=== PATIENT | female | born 1940 | race Hispanic/Latino ===

== ENCOUNTER 2018-07-18 01:00 | Inpatient (IN) | payer MEDICARE ==
--- NOTE | 2018-07-18 01:40 | ED PDOC ---
Arrival/HPI - General Chief Complaint: Altered Mental Status Time Seen by Provider: 07/18/18 01:07 Historian: Patient - History of Present Illness Narrative History of Present Illness (Text): 07/18/18 01:25 78 year old female, whose past medical history includes hypertension, hyperlipidemia, presents to the emergency department by EMS by son concerned for AMS. Patient was noted to answer questions inappropriately since earlier this afternoon. Her son rushed from out of state to see his mother where he called EMS. Patient was not given any medication prior to her arrival in the ED. Patient denies any fever, chills, chest pain, shortness of breath, nausea, vomiting, diarrhea, urinary symptoms, back pain, neck pain, headache, dizziness, or any other complaints. PMD: Dr. Gonzales Time/Duration: Prior to Arrival Symptom Onset: Gradual Symptom Course: Unchanged Activities at Onset: Rest Context: Home Past Medical History - Provider Review Nursing Documentation Reviewed: Yes - Travel History Have you recently traveled outside US w/in the past 3 mons?: No - Infectious Disease Hx of Infectious Diseases: None - Reproductive Menopause: No Family/Social History - Physician Review Nursing Documentation Reviewed: Yes Family/Social History: No Known Family HX Allergies/Home Meds Allergies/Adverse Reactions: Allergies No Known Allergies Allergy (Verified 07/18/18 01:05) Home Medications: Home Meds Medication Instructions Recorded Confirmed Aspirin [Aspirin EC] 325 mg PO DAILY 07/18/18 07/18/18 Ciclopirox/Ure/Camph/Menth/Euc 1 allan DAILY 07/18/18 07/18/18 [Ciclopirox 8% Treatment Kit] Famotidine [Pepcid] 20 mg PO BID 07/18/18 07/18/18 Simvastatin [Zocor] 40 mg PO DAILY 07/18/18 07/18/18 Review of Systems - Physician Review All systems were reviewed & negative as marked: Yes - Review of Systems Constitutional: absent: Fevers, Other (Chills) Respiratory: absent: SOB Cardiovascular: absent: Chest Pain Gastrointestinal: absent: Diarrhea, Nausea, Vomiting Genitourinary Female: absent: Dysuria, Frequency, Hematuria Musculoskeletal: absent: Back Pain, Neck Pain Neurological: absent: Headache, Dizziness Physical Exam Vital Signs Reviewed: Yes Vital Signs Temp Pulse Resp BP Pulse Ox 07/18/18 01:02 97.9 F 86 18 162/72 H 97 Temperature: Afebrile Blood Pressure: Hypertensive Pulse: Regular Respiratory Rate: Normal Appearance: Positive for: Well-Appearing, Non-Toxic, Comfortable, Cachectic Pain Distress: None Mental Status: Positive for: Alert and Oriented X 3 - Systems Exam Head: Present: Atraumatic, Normocephalic, Other (Strabismus left eye) Pupils: Present: PERRL Extroacular Muscles: Present: EOMI Conjunctiva: Present: Normal Mouth: Present: Dry, Other (Poor dention) Neck: Present: Normal Range of Motion Respiratory/Chest: Present: Clear to Auscultation, Good Air Exchange. No: Respiratory Distress, Accessory Muscle Use Cardiovascular: Present: Murmurs (systolic ejection murmur) Abdomen: No: Tenderness, Distention, Peritoneal Signs Back: Present: Normal Inspection Upper Extremity: Present: Normal Inspection. No: Cyanosis, Edema Lower Extremity: Present: Normal Inspection. No: Edema Neurological: Present: GCS=15, CN II-XII Intact, Speech Normal Skin: Present: Warm, Dry, Normal Color. No: Rashes Psychiatric: Present: Alert, Oriented x 3, Normal Insight, Normal Concentration Medical Decision Making ED Course and Treatment: 07/18/18 01:25 Impression: 78 year old female presents by son for evaluation of AMS Differential Diagnosis included but are not limited to: -- Sepsis -- Pneumonia -- UTI Plan: -- Head CT w/ contrast -- Labs -- EKG -- Chest X-ray -- Blood Culture --Urine Culture -- Urinalysis -- Reassess and disposition Progress Notes: 07/18/18 04:03 Labs reviewed with patient noted to be hypokalemic with leukocytosis of 15 noted. CTH negative for intracranial bleeding or skull fracture. Case discussed with Dr. Carmelo Gonzales(PCP)who is aware and agrees with the plan. - Lab Interpretations Lab Results: 07/18/18 01:35 07/18/18 01:35 Lab Results 07/18/18 01:35: Sodium 135, Potassium 3.4 L, Chloride 94 L, Carbon Dioxide 28, Anion Gap 17, BUN 57 H, Creatinine 1.4 H, Est GFR ( Amer) 44, Est GFR (Non-Af Amer) 36, Random Glucose 94, Calcium 9.4, Phosphorus 4.1, Magnesium 1.4 L, Total Bilirubin 0.9, AST 55 H, ALT 17, Alkaline Phosphatase 80, Total Creatine Kinase 283 H, CK-MB (CK-2) 9.4 H, CK-MB (CK-2) % 3.3 H, Troponin I 0.02, Total Protein 8.0, Albumin 4.3, Globulin 3.8, Albumin/Globulin Ratio 1.1 07/18/18 01:35: PT 13.3 H, INR 1.16, APTT 31.7 07/18/18 01:35: WBC 15.3 H, RBC 4.54, Hgb 14.1, Hct 42.4, MCV 93.4, MCH 31.1, MCHC 33.3, RDW 13.8, Plt Count 265, MPV 11.4 H, Gran % 90.7 H, Lymph % (Auto) 6.4 L, Conway % (Auto) 2.6, Eos % (Auto) 0.2 L, Baso % (Auto) 0.1, Gran # 13.90 H, Lymph # (Auto) 1.0 L, Conway # (Auto) 0.4, Eos # (Auto) 0.0, Baso # (Auto) 0.02, Neutrophils % (Manual) 87 H, Band Neutrophils % 6 H, Lymphocytes % (Manual) 5 L, Monocytes % (Manual) 2, Platelet Evaluation Normal I have reviewed the lab results: Yes - RAD Interpretation Narrative RAD Interpretations (Text): PROCEDURE: CT scan of the head. Electronically signed on Jul 18, 2018 2:54:17 AM EST by: Giselle Boland M.D., IMPRESSION: 1. Age-appropriate cerebellar and cerebral atrophy. 2. Mild chronic microvascular disease. 3. No evidence of acute intracranial pathology. 07/18/18 03:42 CXR Impression: As read by me, hyperinflated lungs, no vascular congestion, no focal consolidation, body is slightly rotated. Radiology Orders: 07/18/18 01:07 HEAD W/O CONTRAST [CT] Stat 07/18/18 01:08 CHEST PORTABLE [RAD] Stat Pipe Cutter: ED Physician, Radiologist - EKG Interpretation EKG Interpretation (Text): 07/18/18 01:34 EKG shows NSR at 75 BPM with intermittent PAC, No ST elevation. Interpreted by me. Interpreted by ED Physician: Yes Type: 12 lead EKG - Scribe Statement The provider has reviewed the documentation as recorded by the Lucianoibe Hugo Serna Provider Lucianoibdimitri Attestation: All medical record entries made by the Dusty were at my direction and personally dictated by me. I have reviewed the chart and agree that the record accurately reflects my personal performance of the history, physical exam, medical decision making, and the department course for this patient. I have also personally directed, reviewed, and agree with the discharge instructions and disposition. Disposition/Present on Arrival - Present on Arrival Any Indicators Present on Arrival: No History of DVT/PE: No History of Uncontrolled Diabetes: No Urinary Catheter: No History of Decub. Ulcer: No History Surgical Site Infection Following: None - Disposition Have Diagnosis and Disposition been Completed?: Yes Diagnosis: Failure to thrive, Hypokalemia Disposition: HOSPITALIZED Disposition Time: 04:00 Patient Plan: Admission Condition: GUARDED
[2018-07-18 02:08] LABS: INR 1.16; PARTIAL THROMBOPLASTIN TIME 31.7 Seconds (25.1-36.5); PROTHROMBIN TIME 13.3 SECONDS (9.4-12.5)
[2018-07-18 02:09] LABS: BASO # 0.02 K/mm3 (0.0-2.0); BASO % 0.1 % (0.0-3.0); EOS % 0.2 % (1.5-5.0); GRAN % 90.7 % (50.0-68.0); HEMOGLOBIN 14.1 g/dL (12.0-16.0); LYMPH % 6.4 % (22.0-35.0); MEAN CELL VOLUME 93.4 fl (80.0-105.0); MEAN CORPUSCULAR HEMOGLOBIN 31.1 pg (25.0-35.0); MEAN CORPUSCULAR HGB CONC 33.3 g/dl (31.0-37.0); MEAN PLATELET VOLUME 11.4 fl (7.0-11.0); MONO # 0.4 (0.1-0.6); MONO % 2.6 % (1.0-6.0); PLATELET COUNT 265 10^3/uL (120.0-450.0); RBC 4.54 10^6/uL (3.5-6.1); RED CELL DISTRIBUTION WIDTH 13.8 % (11.5-14.5); WHITE BLOOD COUNT 15.3 10^3/uL (4.5-11.0)
[2018-07-18 03:40] LABS: BAND 6 % (0-2); LYMPHOCYTE 5 % (22.0-35.0); MONOCYTE 2 % (1.0-6.0); NEUTROPHIL 87 % (50.0-70.0); PLATELET ESTIMATE NORMAL (NORMAL)
[2018-07-18 03:44] LABS: ALB/GLOB RATIO 1.1 (1.1-1.8); ALBUMIN 4.3 g/dL (3.0-4.8); CALCIUM 9.4 mg/dL (8.4-10.5)
[2018-07-18 03:55] LABS: TROPONIN I 0.02 ng/mL
[2018-07-18 04:17] LABS: CK MB% 3.3 % (2.5-3.0); CK-MB 9.4 ng/mL (0.0-3.6)
--- NOTE | 2018-07-18 09:26 | CARD ---
APPROVED REPORT Date of service: 07/18/2018 EKG Measurement Heart [id number] <Conclusion> Sinus rhythm Biatrial enlargement Left axis deviation Septal infarct, age undetermined STTW changes c/w ischemia
--- NOTE | 2018-07-18 10:21 | CT ---
Date of service: 07/18/2018 PROCEDURE: CT HEAD WITHOUT CONTRAST. HISTORY: altered mental status COMPARISON: None available. TECHNIQUE: Axial computed tomography images were obtained through the head/brain without intravenous contrast. Supplemental Coronal and Sagittal projections created and reviewed. Radiation dose: Total exam DLP = 838.02 mGy-cm. This CT exam was performed using one or more of the following dose reduction techniques: Automated exposure control, adjustment of the mA and/or kV according to patient size, and/or use of iterative reconstruction technique. FINDINGS: HEMORRHAGE: No intracranial hemorrhage. BRAIN: No mass effect or edema. No atrophy or chronic microvascular ischemic changes. VENTRICLES: Unremarkable. No hydrocephalus. CALVARIUM: Unremarkable. PARANASAL SINUSES: Unremarkable as visualized. No significant inflammatory changes. MASTOID AIR CELLS: Unremarkable as visualized. No inflammatory changes. OTHER FINDINGS: None. IMPRESSION: No acute intracranial abnormalities. No significant findings to account for the clinical presentation. Limitations of the current examination: Head/hair pins which the patient refused to remove preclude optimal assessment of intracranial structures. If symptoms persist or if follow-up is desired, this study should be performed in a manner to mitigate marked streak artifact present on the current examination.
[2018-07-18] MEDS: Levothyroxine 50 MCG TAB PO SCH (10:42)
[2018-07-18] MEDS: Aspirin 325 mg EC Tablets PO SCH (10:44)
--- NOTE | 2018-07-18 11:15 | RAD ---
Date of service: 07/18/2018 HISTORY: Altered mental status. COMPARISON: No prior. FINDINGS: LUNGS: Fibronodular changes in the upper lung narvaez likely the sequela of exposure to granulomatous disease in the past. PLEURA: No significant pleural effusion identified, no pneumothorax apparent. CARDIOVASCULAR: No atherosclerotic calcification present Normal. OSSEOUS STRUCTURES: No significant abnormalities. VISUALIZED UPPER ABDOMEN: Normal. OTHER FINDINGS: None. IMPRESSION: No active disease.
[2018-07-19] MEDS: Levothyroxine 50 MCG TAB PO SCH (10:40)
[2018-07-19] MEDS: Aspirin 325 mg EC Tablets PO SCH (10:41)
--- NOTE | 2018-07-19 14:03 | HP ---
DATE OF EXAM: 07/19/2018 HISTORY OF PRESENT ILLNESS: The patient is a 78-year-old female which I have known from office visits in for several years. However, she has been lost to follow up for about the past 2 years. She received a phone call from her son and he found her to be confused. Her speech was flighty. She did not seem to be her normal self. He was so concerned he flew from [place] to visit her and after staying with her for awhile decided she needed hospitalization. Therefore, the squad was called. She presents to the emergency room and is admitted. PAST MEDICAL HISTORY: She is known to have a past medical history positive for hypothyroidism, hypertension, hyperlipidemia. MEDICATIONS: At the time of admission included Levoxyl 50 mcg, lisinopril, hydrochlorothiazide 20/12.5 and Zocor 40 mg. ALLERGIES: SHE HAS NO KNOWN MEDICAL ALLERGIES. SOCIAL HISTORY: She is a nonalcoholic drinker and is possibly a former smoker. She lives alone. PHYSICAL EXAMINATION: VITAL SIGNS: The blood pressure is 162/72, heart rate is 86 beats per minute and she is afebrile at 97.9 degrees Fahrenheit. GENERAL: She is awake, alert. She recognizes me. She appears very thin and cachectic, this is about her baseline appearance. HEENT: On examination of the Head, eyes, ears, nose and Throat, it is essentially unremarkable. 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 LUNGS: Clear to auscultation and percussion. HEART: Regular. ABDOMEN: Soft and nontender. EXTREMITIES: Free of cyanosis, clubbing or edema. There is an erythematous grade 1 area over her sacrum. LABORATORY STUDIES: Show the white blood cell count to be 15.3, hemoglobin and hematocrit are 14.1 and 42.4, platelet count is 265. Sodium is 135, potassium 3.4, blood urea nitrogen 57, creatinine 1.4, glucose is 94. Total CK is 283. Troponins are negative at 0.02. DIAGNOSTIC DATA: EKG shows regular sinus rhythm with premature atrial contractions biatrial enlargement and a left axis deviation. CT scan of the head shows small vessel disease. So the patient is to be admitted. We will watch her for mental status changes. I will call Dr. Valdes, the pediatrics physician for evaluation of COPD. I will also ask Dr. Ortega, the neurologist to evaluate the patient for her mental status changes. We are continuing her medication as from home and I contacted the son and spoke with the patient DNR/DNI status is written. The patient will be reevaluated in the morning. Edsam Gonzales MD MTDD
--- NOTE | 2018-07-19 14:30 | PN ---
DATE: 07/19/2018 SUBJECTIVE: The patient is a 78-year-old female with a history of hypothyroidism, hypertension and hyperlipidemia who was admitted to the [facility] yesterday with a diagnosis of mental status changes. She apparently was confused and flighty in her speech. Her son was concerned therefore brought her to the emergency room and she is admitted. Workup today is essentially negative. When seen, the patient recognizes me. She is awake, alert and oriented although she did ask where she was, thinking this may be a fci. Apparently according to the nursing staff, she was very groggy this morning and was too tired to get out of bed to begin physical therapy. In talking to the patient's son yesterday and to the patient today, he is offering to take her to [place] to live with him. She in the past always refused. However, when speaking to the patient today, she is thinking that it might be a good idea and she may be in agreement with that. There is no change on physical exam. Urinalysis and urine for culture and sensitivity is ordered. Also repeat blood work is ordered for tomorrow morning. Cipriano Gonzales MD MTDD
[2018-07-19 16:36] LABS: URINE BILIRUBIN SMALL (NEGATIVE); URINE BLOOD NEGATIVE (NEGATIVE); URINE GLUCOSE (UA) NEGATIVE (NEGATIVE); URINE LEUKOCYTE ESTERASE SMALL Leu/uL (NEGATIVE); URINE PROTEIN TRACE mg/dL (<30 mg/dL); URINE UROBILINOGEN 0.2 E.U./dL (<1 E.U./dL)
[2018-07-19 16:37] LABS: URINE APPEARANCE SLIGHT-CLOUDY (CLEAR); URINE COLOR YELLOW (YELLOW)
[2018-07-19 16:41] LABS: URINE RBC 0 - 2 /hpf (0-2)
[2018-07-19 16:42] LABS: URINE BACTERIA TRACE /hpf; URINE HYALINE CAST 0 - 2 /hpf
[2018-07-20 07:19] LABS: BASO % 0.1 % (0.0-3.0)
[2018-07-20 07:38] LABS: ALB/GLOB RATIO 1.1 (1.1-1.8); ALBUMIN 3.8 g/dL (3.0-4.8); CALCIUM 8.6 mg/dL (8.4-10.5)
[2018-07-20 08:06] LABS: BASO # 0.02 K/mm3 (0.0-2.0); EOS % 0.3 % (1.5-5.0); GRAN # 12.51 (1.4-6.5); GRAN % 87.9 % (50.0-68.0); HEMOGLOBIN 12.6 g/dL (12.0-16.0); LYMPH # 1.2 (1.2-3.4); LYMPH % 8.1 % (22.0-35.0); MEAN CORPUSCULAR HEMOGLOBIN 30.7 pg (25.0-35.0); MEAN CORPUSCULAR HGB CONC 30.4 g/dl (31.0-37.0); MEAN PLATELET VOLUME 11.5 fl (7.0-11.0); MONO # 0.5 (0.1-0.6); MONO % 3.6 % (1.0-6.0); RBC 4.11 10^6/uL (3.5-6.1); RED CELL DISTRIBUTION WIDTH 14.1 % (11.5-14.5); WHITE BLOOD COUNT 14.3 10^3/uL (4.5-11.0)
[2018-07-20 08:09] LABS: MEAN CELL VOLUME 100.7 fl (80.0-105.0)
[2018-07-20] MEDS ORDERED: Magnesium Sulfate 1 gm in D5W 1 GM/100 ML BAG IVPB ONE (08:23)
--- NOTE | 2018-07-20 08:30 | PN ---
DATE: 07/20/2018 SUBJECTIVE: The patient appears comfortable this morning. She is not short of breath at rest. She remains somewhat confused. PHYSICAL EXAMINATION: VITAL SIGNS: Temperature 97.7, pulse 84, respirations 18, blood pressure 138/115. Oxygen saturation on room air - 90%. Oxygen saturation on nasal cannula 94-98%. HEENT: Normocephalic, atraumatic. NECK: No JVD. CARDIOVASCULAR: Systolic ejection murmur at the lower left sternal border. No S3 gallop. LUNGS: Clear bilaterally. EXTREMITIES: Mild edema. No cyanosis. No clubbing. Calves are nontender to palpation. GI: Abdomen is soft, nontender and nondistended. Bowel sounds are positive. SKIN: No acute rash. NEUROLOGIC: Exam limited at the present time. IMPRESSION: 1. Encephalopathy/confusion. 2. Leukocytosis. 3. Renal insufficiency. 4. Hypertension. 5. Rule out chronic obstructive pulmonary disease. PLAN: The patient appears comfortable this morning. She is not short of breath at rest. She remains confused. I did have a long discussion with the night nurse at length. Apparently, the patient was seen by my partner, Dr. Valdes yesterday - who felt that the patient did not have chronic obstructive pulmonary disease. In addition, there are no notations of chronic obstructive pulmonary disease in the current or old charts. I will check our office for possible old records. I will also discuss the case, Dr. Valdes later this morning. On physical exam, there is no bronchospasm noted. However, there is a mild increase in the alveolar-arterial gradient. Repeat a.m. labs are pending. Culture results are pending. Neurologic evaluation is pending. The patient does appear improved - compared to the initial presentation. I will discuss the above with the attending physician. Corey Cazares MD MTDD
--- NOTE | 2018-07-20 09:20 | CON ---
DATE: 07/19/2018 HISTORY OF PRESENT ILLNESS: This is 78-year-old female with past medical history of hypertension, hyperlipidemia came to hospital with altered mental status and son lives in [place], who is at bedside and found that very confused and hallucinating . PAST MEDICAL HISTORY: As above. PHYSICAL EXAMINATION: GENERAL: The patient is uncooperative for the exam. HEENT: Normocephalic, atraumatic. NECK: Supple. NEUROLOGIC: Alert, awake, oriented to self. Cranial nerves II through XII are tested. Pupils reactive. Spontaneous movement of the extremities noted. Deep tendon reflexes are 1+. Both plantars are downgoing. Sensory appears intact. Cerebellar gait deferred. ASSESSMENT AND PLAN: Dementia and also altered mental status with hallucination. We will give her Seroquel. CAT scan of the head was negative and also start Aricept 10 mg p.o. daily. Sabino Ortega MD
[2018-07-20 09:24] LABS: FREE T4 0.83 ng/dL (0.78-2.19)
--- NOTE | 2018-07-20 09:25 | CON ---
DATE: 07/19/2018 PULMONARY CONSULTATION HISTORY OF PRESENT ILLNESS: Ms. Reyes is a 78-year-old woman was brought to the emergency room by her son visiting from [place]. The patient had altered mental status and was not able to answer questions appropriately. She came to the emergency room and then was admitted to the hospital for possible urinary tract infection and urosepsis. Pulmonary evaluation was requested because of cough, and the patient has been combative to the nursing staff and according to the patient's son, this is not her usual mental status. Minimal history is available at this time. There is no known smoking history. ALLERGIES: NO KNOWN ALLERGIES. SOCIAL HISTORY: No smoking history FAMILY HISTORY: HTN PAST MEDICAL HISTORY: HTN, Hyperlipidemia, Hypothyroidism HOME MEDICATIONS: Include aspirin, Pepcid, Synthroid, lisinopril, Zocor. REVIEW OF SYSTEMS: Has been gleaned from the chart which is negative. We will await this patient's son's presence back to the hospital to further elucidate the past medical history and discuss this case at length with Dr. Alhaji Gonzales. PHYSICAL EXAMINATION: VITAL SIGNS: Stable. The patient is afebrile 98.6, pulse 86, respiratory rate 18, blood pressure 160/70, pulse ox 97% on room air. HEENT: Normocephalic, atraumatic. Pupils are PERRLA. EOMs full. Conjunctivae pink. NECK: Supple. No jugular venous distention. CHEST: Clear to percussion and auscultation. CARDIOVASCULAR: Regular rhythm. S1, S2. Soft systolic ejection murmur at the lower left sternal border. ABDOMEN: Soft. Bowel sounds normoactive without mass, guarding, rebound, organomegaly. EXTREMITIES: Reveal no clubbing, cyanosis or edema. NEUROLOGIC: Reveals no focal findings. SKIN: Warm but dry. The patient's is lethargic and has been has been found to be inappropriate with the nursing staff earlier. She is resting at this time. . CLINICAL IMPRESSION: 1. Altered mental status. 2. Urosepsis. 3. Possible pneumonitis according to staff. PLAN: Continue vigorous bronchodilator therapy. Continue antibiotic therapy, evaluation of the neurologic status, evaluation of the infectious status. Repeat chest x-ray which will be reviewed when completed. Luis Manuel Valdes MD [facility] # [id number] VALERIA
[2018-07-20] MEDS: Aspirin 325 mg EC Tablets PO SCH ×2 (10:10→19:22)
[2018-07-20] MEDS: Sodium Chloride 0.9% 1,000 ML IV SCH (10:11)
--- NOTE | 2018-07-20 11:39 | CP.PCM.PCO ---
Physician Communication Note - Physician Communication Note Physician Communication Note: transient confusional state with cognitive impairment. c/w aricept.
[2018-07-20] MEDS ORDERED: Sodium Chloride 0.9% 500 ML IV STA (12:58)
[2018-07-20 13:01] LABS: HEMOGLOBIN 12.2 g/dL (12.0-16.0); MEAN CELL VOLUME 101.5 fl (80.0-105.0); MEAN CORPUSCULAR HGB CONC 30.5 g/dl (31.0-37.0); MEAN PLATELET VOLUME 11.3 fl (7.0-11.0); RBC 3.94 10^6/uL (3.5-6.1); RED CELL DISTRIBUTION WIDTH 14.1 % (11.5-14.5); WHITE BLOOD COUNT 12.1 10^3/uL (4.5-11.0)
[2018-07-20 13:09] LABS: CALCIUM 8.2 mg/dL (8.4-10.5)
--- NOTE | 2018-07-20 13:10 | CP.PCM.APN ---
Subjective - Date & Time of Evaluation Date of Evaluation: 07/20/18 Time of Evaluation: 08:30 - Subjective Subjective: Pt seen and examined at bedside. Lethargic but opens eyes on verbal and tactile stimuli. No respiratory distress. Objective - Vital Signs/Intake and Output Vital Signs (last 24 hours): Temp Pulse Resp BP Pulse Ox 97.4 F L 80 18 91/49 L 98 07/20/18 07:00 07/20/18 07:00 07/20/18 07:00 07/20/18 07:00 07/20/18 07:00 - Medications Medications: Current Medications Aspirin (Ecotrin) 325 mg PO DAILY [facility] Last Admin: 07/20/18 10:10 Dose: 325 mg Atorvastatin Calcium (Lipitor) 20 mg PO DIN [facility] Last Admin: 07/19/18 17:21 Dose: 20 mg Donepezil HCl (Aricept) 10 mg PO HS [facility] Last Admin: 07/19/18 22:11 Dose: 10 mg Famotidine (Pepcid) 20 mg PO BID [facility] Last Admin: 07/20/18 10:10 Dose: 20 mg Hydrochlorothiazide (Microzide) 12.5 mg PO DAILY [facility] Last Admin: 07/19/18 10:40 Dose: 12.5 mg Sodium Chloride (Sodium Chloride 0.9%) 1,000 mls @ 80 mls/hr IV .[id number] [facility] Last Admin: 07/20/18 10:11 Dose: 80 mls/hr Sodium Chloride (Sodium Chloride 0.9%) 500 mls @ 999 mls/hr IV .Q31M STA Stop: 07/20/18 13:28 Levothyroxine Sodium (Synthroid) 75 mcg PO 0600 [facility] Lisinopril (Zestril) 20 mg PO DAILY [facility] Last Admin: 07/19/18 10:50 Dose: Not Given Quetiapine Fumarate (Seroquel) 25 mg PO HS [facility]; Protocol Last Admin: 07/19/18 22:11 Dose: 25 mg - Labs Labs: 07/20/18 06:45 07/20/18 06:45 PT 13.3 SECONDS (9.4-12.5) H 07/18/18 01:35 INR 1.16 07/18/18 01:35 APTT 31.7 Seconds (25.1-36.5) 07/18/18 01:35 - Constitutional Appears: Cachectic, Chronically Ill - Head Exam Head Exam: ATRAUMATIC - Eye Exam Eye Exam: Normal appearance - ENT Exam ENT Exam: Normal Exam - Neck Exam Neck Exam: Full ROM - Respiratory Exam Respiratory Exam: Clear to Ausculation Bilateral, NORMAL BREATHING PATTERN - Cardiovascular Exam Cardiovascular Exam: REGULAR RHYTHM, +S1, +S2 - Rectal Exam Rectal Exam: Deferred - Extremities Exam Extremities Exam: Normal Inspection - Neurological Exam Additional comments: lethargic but arousable Assessment and Plan - Assessment and Plan (Free Text) Assessment: Pt is a 78 y.o. female who is admitted for AMS. Today she is lethargic. Her Bun/Cr is trending up. Blood pressure was 76/43 HR 87 and afebrile. Discussed with Dr. Carmelo Gonzales, will continue with IVFs for now. Repeat blood works ordered. Plan: AMS - CT head negative - Will reduce Seroquel dose per Neuro recs - CXR negative - pt lethargic this morning, started on IVFs. After 300ml of bolus, pt is more awake and alert but still confused Hypotension - IVF bolus - recheck BP and continue with IVFs (BP rechecked - 80/43) - Held BP meds LEONARD - Held diuretic and Lisinopril - IVFs - Monitor Bun/Creatinine Hypothyroidsim - TSH elevated 7.16 - Increased Synthroid D/W Dr. Carmelo Gonzales about plans above and amenable.
[2018-07-21] MEDS: Levothyroxine 75 MCG TAB PO SCH (05:49)
[2018-07-21 07:07] LABS: MEAN CORPUSCULAR HEMOGLOBIN 30.3 pg (25.0-35.0); MEAN CORPUSCULAR HGB CONC 29.4 g/dl (31.0-37.0); MEAN PLATELET VOLUME 11.5 fl (7.0-11.0); RBC 3.96 10^6/uL (3.5-6.1); WHITE BLOOD COUNT 10.7 10^3/uL (4.5-11.0)
[2018-07-21 07:38] LABS: CALCIUM 8.6 mg/dL (8.4-10.5)
[2018-07-21] MEDS: Aspirin 325 mg EC Tablets PO SCH (08:00)
[2018-07-22] MEDS: Sodium Chloride 0.9% 1,000 ML IV SCH (01:39)
[2018-07-22] MEDS: Levothyroxine 75 MCG TAB PO SCH (05:29)
[2018-07-22 08:35] VITALS: RESP 18
--- NOTE | 2018-07-22 09:32 | PN ---
DATE: 07/22/2018 SUBJECTIVE: The patient appears very comfortable this morning. She is not short of breath at rest. She remains confused. OBJECTIVE: VITAL SIGNS (Last noted in the computer): Temperature is 97.5, pulse 76, respirations 18, blood pressure 110/57. Oxygen saturation on room air 97%-98%. HEENT: Normocephalic, atraumatic. NECK: No JVD. CARDIOVASCULAR: Systolic ejection murmur at the lower left sternal border. No S3 gallop. LUNGS: Clear bilaterally. EXTREMITIES: Mild edema. No cyanosis, no clubbing. Calves are nontender to palpation. GASTROINTESTINAL: Abdomen is soft, nontender and nondistended. Bowel sounds are positive. SKIN: No acute rash. NEUROLOGIC: Limited at the present time. IMPRESSION: 1. Encephalopathy/confusion. 2. Leukocytosis - resolved. 3. Renal insufficiency. 4. Hypertension. 5. Rule out chronic obstructive pulmonary disease. PLAN: The patient appears comfortable this morning. She is not short of breath at rest. She remains confused. I did discuss the case to night nurse at length. The night nurse stated the patient had an uneventful night. On physical exam, the patient's lungs remain clear. In addition, the oxygen saturation on room air is now 97%-98%. Again, the patient does have a questionable history of chronic obstructive pulmonary disease. I would certainly like to get a pulmonary function test - when feasible. Inputs by Internal Medicine and Neurology are also noted. Clinical status of the patient does appear improved - compared to the initial presentation. Again, the leukocytosis has resolved. I will discuss the above with the attending physician. Corey Cazares MD MTDBeth
[2018-07-22] MEDS: Aspirin 325 mg EC Tablets PO SCH (09:37)
--- NOTE | 2018-07-22 14:27 | CP.PCM.APN ---
Subjective - Date & Time of Evaluation Date of Evaluation: 07/22/18 Time of Evaluation: 10:05 - Subjective Subjective: Pt. seen and examined at bedside. Is lethargic, but arousable, does not answer questions appropriately.RR easy and unlabored. Review of Systems - Review of Systems Systems not reviewed;Unavailable: Dementia - Constitutional Constitutional: Daytime Sleepiness - EENT Eyes: As Per HPI Nose/Mouth/Throat: As Per HPI - Breasts Breasts: As Per HPI - Cardiovascular Cardiovascular: As Per HPI - Respiratory Respiratory: As Per HPI - Gastrointestinal Gastrointestinal: As Per HPI - Genitourinary Genitourinary: As Per HPI - Reproductive: Female Reproductive:Female: As Per HPI - Neurological Neurological: Weakness - Psychiatric Psychiatric: As Per HPI - Endocrine Endocrine: As Per HPI Objective - Vital Signs/Intake and Output Vital Signs (last 24 hours): Temp Pulse Resp BP Pulse Ox 98.2 F 84 18 112/61 97 07/22/18 14:00 07/22/18 14:00 07/22/18 14:00 07/22/18 14:00 07/22/18 14:00 Intake and Output: 07/22/18 07/22/18 06:59 18:59 Intake Total 0 Balance 0 - Medications Medications: Current Medications Aspirin (Ecotrin) 325 mg PO DAILY [facility] Last Admin: 07/22/18 09:37 Dose: 325 mg Atorvastatin Calcium (Lipitor) 20 mg PO DIN [facility] Last Admin: 07/21/18 18:00 Dose: Not Given Donepezil HCl (Aricept) 10 mg PO HS [facility] Last Admin: 07/21/18 21:41 Dose: 10 mg Famotidine (Pepcid) 20 mg PO BID [facility] Last Admin: 07/22/18 09:37 Dose: 20 mg Hydrochlorothiazide (Microzide) 12.5 mg PO DAILY [facility] Last Admin: 07/19/18 10:40 Dose: 12.5 mg Sodium Chloride (Sodium Chloride 0.9%) 1,000 mls @ 80 mls/hr IV .[id number] [facility] Last Admin: 07/22/18 01:39 Dose: 80 mls/hr Levothyroxine Sodium (Synthroid) 75 mcg PO 0600 [facility] Last Admin: 07/22/18 05:29 Dose: 75 mcg Lisinopril (Zestril) 20 mg PO DAILY [facility] Last Admin: 07/19/18 10:50 Dose: Not Given Quetiapine Fumarate (Seroquel) 12.5 mg PO HS [facility]; Protocol Last Admin: 07/21/18 21:41 Dose: 12.5 mg - Labs Labs: 07/21/18 06:15 07/21/18 06:15 PT 13.3 SECONDS (9.4-12.5) H 07/18/18 01:35 INR 1.16 07/18/18 01:35 APTT 31.7 Seconds (25.1-36.5) 07/18/18 01:35 - Constitutional Appears: Confused - Head Exam Head Exam: NORMOCEPHALIC - Eye Exam Eye Exam: Normal appearance - ENT Exam ENT Exam: Normal Exam - Neck Exam Neck Exam: Normal Inspection - Respiratory Exam Respiratory Exam: NORMAL BREATHING PATTERN - Cardiovascular Exam Cardiovascular Exam: REGULAR RHYTHM - GI/Abdominal Exam GI & Abdominal Exam: Soft - Rectal Exam Rectal Exam: Deferred - Neurological Exam Neurological Exam: Altered - Skin Skin Exam: Dry, Intact, Normal Color, Warm Assessment and Plan - Assessment and Plan (Free Text) Assessment: 78 year old female, whose past medical history includes hypertension, hyperlipidemia, presents to the emergency department by EMS by son ,admitted with AMS, and Acute renal insufficiency, undergoing neurological workup and hydration with IVF. Patient was noted to answer questions inappropriately since earlier this afternoon, is still lethargic. Plan: 1.AMS found to be transient confusion, with cognitive impairment, as per Neuro continue with Aricept. 2. Acute Kidney Injury/Renal Insuffiency, improved on IVF, likely secondary to poor nutrition, secondary to lethargy, continue to follow BUN/ Creatinine 3. Leukocytosis Improved , cultures so far negative. 4. Lethargy- PT has recommended [facility], will need 2-4 weeks Physical rehab, Per PMD patient medically cleared for DC when bed available at [facility]. SW / CM DC planning to [facility]. Will continue to monitor clinical status and follow closely.
[2018-07-22] MEDS: Levalbuterol 0.63 MG/3 ML Inhal Soln UD IH PRN (21:48)
[2018-07-23] MEDS: Levothyroxine 75 MCG TAB PO SCH (06:44)
[2018-07-23] MEDS: Levalbuterol 0.63 MG/3 ML Inhal Soln UD IH PRN (06:57)
[2018-07-23 08:24] VITALS: O2SAT 95
[2018-07-23] MEDS: Aspirin 325 mg EC Tablets PO SCH (09:07)
--- NOTE | 2018-07-23 09:42 | RAD ---
Date of service: 07/23/2018 HISTORY: sob COMPARISON: 07/18/2018 FINDINGS: LUNGS: No active pulmonary disease. PLEURA: Small right pleural effusion CARDIOVASCULAR: Aortic calcification Normal cardiac size. No pulmonary vascular congestion. OSSEOUS STRUCTURES: No significant abnormalities. VISUALIZED UPPER ABDOMEN: Normal. OTHER FINDINGS: None. IMPRESSION: Small right effusion
--- NOTE | 2018-07-23 11:35 | CP.PCM.PCO ---
Physician Communication Note - Physician Communication Note Physician Communication Note: Per Dr. Carmelo Gonzales, pt is medically cleared for DC to [facility] today
--- NOTE | 2018-07-23 14:19 | PN ---
DATE: 07/23/2018 PULMONARY PROGRESS NOTE LOCATION: Room 563. SUBJECTIVE: The patient is resting comfortably, in no acute distress. She remains confused. There is no change in her mental status. OBJECTIVE: VITAL SIGNS: Remain stable. The patient is afebrile. Vital signs stable. Blood pressure 110/70, heart rate 70, respiratory rate 18, O2 saturation 98% on room air. HEENT: Normocephalic, atraumatic. NECK: Supple. No jugular venous distention. No bruit. No mass. CARDIOVASCULAR: Regular rhythm. S1 and S2 without murmur, gallop or rub. CHEST: Clear to percussion and auscultation. ABDOMEN: Soft. Bowel sounds normoactive without mass, guarding, rebound or organomegaly. EXTREMITIES: Reveal no clubbing, cyanosis or edema. There is no Homans sign. SKIN: Shows no rash or excoriation. LYMPH NODES: There is no lymphadenopathy present on physical examination. NEUROLOGIC: No focal findings. The patient remains confused and with abnormal mental status. CLINICAL IMPRESSION: 1. Possible chronic obstructive pulmonary disease. 2. Acute bronchitis. 3. Encephalopathy and confusion. 4. Leukocytosis, in resolution. 5. Renal insufficiency. PLAN: Continue vigorous supportive care. We will discuss with Dr. Gonzales. No further pulmonary intervention appears to be necessary. We will follow closely with you as required. Thank you for the opportunity to help care for this katherine patient. Luis Manuel Valdes MD
[2018-07-23 16:07] VITALS: BP 143/77; PULSE 86; TEMP 98
== END 2018-07-23 18:20 | DRG 884 ==
LOC: ED 01:00 → ERH 03:53 → 5RNO 04:43
PROVIDERS: ADMIT Internal Medicine; ATTEND Internal Medicine
DX: F03.91 Unspecified dementia, unspecified severity, with behavioral disturbance (principal); G93.40 Encephalopathy, unspecified; R44.3 Hallucinations, unspecified; Z79.890 Hormone replacement therapy; Z79.82 Long term (current) use of aspirin; I10 Essential (primary) hypertension; N28.9 Disorder of kidney and ureter, unspecified; J20.9 Acute bronchitis, unspecified; E03.9 Hypothyroidism, unspecified; E78.5 Hyperlipidemia, unspecified; E87.6 Hypokalemia; R62.7 Adult failure to thrive; Z87.891 Personal history of nicotine dependence; D72.829 Elevated white blood cell count, unspecified